=== PATIENT | female | born 1955 | race Caucasian/White ===

== ENCOUNTER → 2021-08-29 | Outpatient (CLI) | payer MEDICARE | LOC: KOH-I 13:30 | DX: M25.551 Pain in right hip (principal); M51.16 Intervertebral disc disorders with radiculopathy, lumbar region; M51.14 Intervertebral disc disorders with radiculopathy, thoracic region; M51.36 Other intervertebral disc degeneration, lumbar region | CPT/HCPCS: 72146; 73700 ==